=== PATIENT | female | born 1965 | race Caucasian/White ===

== ENCOUNTER 2020-05-12 10:24 | Outpatient (CLI) | payer OTHER ==
--- NOTE | 2020-05-12 12:57 | RAD ---
Exam: Barium swallow esophagram Exposure: 3.6 minutes, 4.56 mg/sq cm HISTORY: Difficulty swallowing. Dysphagia. FINDINGS: Chest one view: Cycle Counter chest radiograph demonstrates a normal cardiac silhouette. Pulmonary vessels and hilum are normal. Costophrenic angles are clear. Lungs are hyperinflated, without consolidation or mass. No pneumothorax or acute osseous abnormalities There is a short segment narrowing involving the proximal thoracic esophagus at the T2 and T3 level. On the AP projection, there is a left-sided filling defect. On the lateral projection, there is circumferential narrowing, similar to an apple core type lesion. The remainder the thoracic esophagus has a overall normal course and caliber. No evidence of penetration or aspiration. There is residue in the piriform sinuses and vallecula. Patient was administered a 13 mm barium tablet which did not initially pass beyond the level of stric ture. Tablet did evaluation making to the mid thoracic esophagus. Patient began coughing and spit up the tablet. IMPRESSION: High-grade stricture involving the proximal thoracic esophagus. Endoscopy is recommended Results of study discussed with Dr. Headley 05/12/2020 at 1:00 PM Code CR Transcribed Date/Time: 05/12/2020 1:33 PM
== END 2020-05-12 10:25 | disposition home or self-care (01) ==
LOC: RAD 10:24
PROVIDERS: ATTEND Student in an Organized Health Care Education/Training Program
DX: R13.10 Dysphagia, unspecified (principal); K22.2 Esophageal obstruction
CPT/HCPCS: 74220

== ENCOUNTER 2020-05-23 09:52 | Outpatient (CLI) | payer OTHER ==
[2020-05-23] MEDS ORDERED: Iopamidol 370 76% 100 ML VIAL ONE (11:00)
--- NOTE | 2020-05-23 11:25 | CT ---
CT neck soft tissues with contrast: 05/23/2020 HISTORY: 55-year-old female with dysphagia and esophageal mass K22.9 COMPARISON: None FINDINGS: Centrilobular emphysematous changes throughout the visualized portions of the upper lung palafox. Rim-enhancing, irregularly-shaped mass with necrotic central components, centered in the upper esopha kathy, measuring approximately 1.5 x 3.5 x 5.5 cm. The superior component apparently involves the post cricoid region and posterior pharyngeal wall. Its inferior extent reaches approximately the T2-3 level. The left side of the tumor mass occupies the posterior half of the left lobe of the thyroid gland. No involvement of the larynx. There may or may not be involvement of local small lymph nodes around t he main tumor, but there is no significant cervical lymphadenopathy by size criteria at the various levels of cervical lymph nodes. The parapharyngeal, retropharyngeal, perivertebral, submandibular, parotid, metal bending machine operator, and posterior cervical, spaces, are unremarkable. No destructive osseous lesion. IMPRESSION: 1.) Malignant neoplastic tumor of upper esophagus, involving the hypopharynx, and apparently invading the left lobe of thyroid gland.. 2) centrilobular emphysema.
== END 2020-05-23 09:53 | disposition home or self-care (01) ==
LOC: BICCT 09:52
PROVIDERS: ATTEND Student in an Organized Health Care Education/Training Program
DX: K22.8 Other specified diseases of esophagus (principal); J43.2 Centrilobular emphysema
CPT/HCPCS: 70491; Q9967

== ENCOUNTER 2020-05-25 15:44 | Outpatient (CLI) | payer OTHER ==
[2020-05-26 14:28] LABS: SARS-CoV-2 MS2 Positive; SARS-CoV-2 N Gene Negative; SARS-CoV-2 S Gene Negative; SARS-CoV-2 by NAA Not Detected (NotDetected); SARS-CoV-2 orf1ab Negative
== END 2020-05-25 15:45 | disposition home or self-care (01) ==
LOC: LABBT 15:44
PROVIDERS: ATTEND Internal Medicine Gastroenterology
DX: Z01.812 Encounter for preprocedural laboratory examination (principal); Z11.59 Encounter for screening for other viral diseases; R13.10 Dysphagia, unspecified
CPT/HCPCS: 87635; U0003

== ENCOUNTER 2020-06-09 07:54 | Outpatient (CLI) | payer OTHER ==
--- NOTE | 2020-06-09 11:17 | PET ---
PET W CT Skull to Mid Thigh History: Malignant neoplasm of esophagus. Comparison: Neck CT May 23, 2020 Findings: PET CT from skull-mid thigh was performed after the intravenous administration of 11 mCi F- 18 FDG. Markedly FDG avid mass extending from the hypopharynx and upper thoracic esophagus has SUV max 11.8. No adjacent FDG avid adenopathy. Single subtle focal area of increased FDG avidity within the anterior left fifth rib with SUV max 2.7 . On the noncontrast attenuation corrected images there is associated mild anterior and posterior cortical sclerosis suggesting healing fracture. No other focal area of abnormal FDG avidity from the skull-mid thigh. Noncontrast CT for attenuation correction infiltrates high-grade centrilobular emphysema in the lung apices. Mild atherosclerotic plaque of the aorta. No dilated loops of large or small bowel. No hydronephrosis. Impression: 1. Markedly FDG avid mass of the hypopharynx extending to the upper thoracic esophagus with SUV max 1 1.8. No adjacent FDG avid adenopathy. 2. Subtle focus of increased FDG avidity within the anterior left fifth rib felt to reflect a healing rib fracture as there is anterior and posterior cortical sclerosis without erosion. Close attention on follow-up imaging recommended 3. No distant solid organ metastatic disease. 4. High-grade centrilobular emphysema in the lung apices.
== END 2020-06-09 07:55 | disposition home or self-care (01) ==
LOC: PET 07:54
PROVIDERS: ATTEND Internal Medicine Hematology & Oncology
DX: C15.8 Malignant neoplasm of overlapping sites of esophagus (principal); J43.2 Centrilobular emphysema; J39.2 Other diseases of pharynx; S22.32XD Fracture of one rib, left side, subsequent encounter for fracture with routine healing; G37.9 Demyelinating disease of central nervous system, unspecified
CPT/HCPCS: 78815; A9552

== ENCOUNTER 2020-07-11 14:16 | Outpatient (CLI) | payer OTHER ==
--- NOTE | 2020-07-11 15:54 | RAD ---
LEFT SHOULDER 3 VIEWS: Date: 07/11/2020 HISTORY: Left shoulder pain. FINDINGS/IMPRESSION: No fracture, dislocation, or bony destruction is seen. POS: AH
== END 2020-07-11 14:17 | disposition home or self-care (01) ==
LOC: BICRAD 14:16
PROVIDERS: ATTEND Radiology Radiation Oncology
DX: M25.512 Pain in left shoulder (principal); C80.1 Malignant (primary) neoplasm, unspecified

== ENCOUNTER 2020-07-24 16:08 | Inpatient (IN) | payer OTHER ==
[~2020-07-24 16:08] MED LIST: Iopamidol 370 76% 100 ML VIAL ONE
[2020-07-24 16:41] LABS: Hemoglobin 10.3 g/dL (12.0-16.0); Mean Corpuscular HGB CONC 34.2 g/dL (32.0-36.0); Mean Corpuscular Volume 99.5 fL (78.0-98.0); Mean Platelet Volume 8.4 fL (7.4-10.4); Platelet Count 396 thou/uL (130-400); RBC Distribution Width 13.3 % (11.5-14.5); Red Blood Cell (RBC) Count 3.04 mill/uL (4.20-5.40); White Blood Cell (WBC) Count 4.3 thou/uL (4.8-10.8)
[2020-07-24 16:58] LABS: Band 39 % (5-11); MDiff Complete? YES; Macrocytosis SLIGHT = 6-15 cells (100X) (0-5/hpf); Metamyelocyte 4 % (0-0); Monocytes 11 % (0-10); Neutrophil 46 % (42-75); Platelet Morphology Comment Appears Adequate; Polychromasia SLIGHT = 2-3 cells (100X) (0-2/hpf)
[2020-07-24 17:01] LABS: ALT (SGPT) 14 U/L (8-55); AST (SGOT) 13 U/L (5-34); Albumin 3.1 g/dL (3.5-5.0); Alkaline Phosphatase 85 U/L (40-110); Anion Gap 15 mmol/L (10-20); BUN (Urea Nitrogen) 14 mg/dL (9.8-20.1); Bilirubin, Total 0.4 mg/dL (0.2-1.2); Calc. Creatinine Clearance 0 mL/min (70-130); Calcium 8.5 mg/dL (7.8-10.44); Carbon Dioxide 22 mmol/L (22-29); Chloride 101 mmol/L (98-107); Estimated GFR-MDRD Greater than 90; Globulin 2.3 g/dL (2.4-3.5); Glucose 112 mg/dL (70-105); Potassium 3.4 mmol/L (3.5-5.1); Protein, Total 5.4 g/dL (6.0-8.3); Sodium 135 mmol/L (136-145)
--- NOTE | 2020-07-24 17:01 | RAD ---
Chest one view HISTORY: Cough. Evaluate for aspiration pneumonia. COMPARISON: 06/16/2020. FINDINGS: Cardiac silhouette and pulmonary vasculature are unremarkable. Mediastinum is midline with right subclavian Mediport unchanged in position. Ill-defined parenchymal opacity projects over the right lower lobe. Predominantly superior segment. Left lung well-inflated. No evidence of pneumothorax. IMPRESSION : Right lower lobe infiltrate, consistent with aspiration pneumonia.
[2020-07-24] MEDS ORDERED: Vancomycin 1 GM/200 ML BAG ONE ×2 (17:09→18:13)
[2020-07-24] MEDS ORDERED: Cefepime 1 GM VIAL ONE (17:09)
--- NOTE | 2020-07-24 17:39 | CT ---
CT ANGIOGRAM OF THE CHEST: HISTORY: Cough. Dyspnea. History of esophageal cancer. Patient is undergoing radiation therapy and ch emotherapy. Possible aspiration pneumonia secondary to fistula between esophagus and her trachea. Progressive cough with brown-green sputum. COMPARISON: None Correlation: CT neck soft tissue 05/23/2020 TECHNIQUE: CT angiogram of the chest is performed in the axial plane. Three-dimensional reformatted i mages are submitted for interpretation FINDINGS: Mediastinum: No mass, lymphadenopathy or hematoma. HEART: Normal size. No significant pericardial fluid. Aorta: No aneurysm or dissection Upper solid abdominal viscera: No abnormality enhancement. Trachea and central bronchi: Patent Pleural spaces: No effusion Lung parenchyma: There is extensive consolidation involving the right upper lobe. There is a cavitary lesion in the right upper lobe with adjacent lung parenchymal opacification. Cavitary portion measures 2.5 x 10 m. Additional smaller cavitations in the right upper lobe are identified. Small cav itary focus with increased soft tissue in the periphery, measuring 1.4 x 1.2 cm is located in the middle lobe. Solid nodule in the middle lobe, measuring 0.5 cm. Irregular marginated solid nodule in the right lower lobe measures 0.8 x 0.6 cm. Emphysematous change in the left and right upper lobe. Pneumothorax: None Osseous structures: No lytic or blastic lesions Pulmonary arteries: Adequate contrast opacification pulmonary arterial system to the level of segment al arteries. No filling defect to suggest pulmonary embolism Lines and tubes: Right-sided PICC line, terminates in the caval atrial junction. There is a percutane ous gastric feeding tube. Additional findings: Ventral abdominal wall hernia containing mesenteric fat. There does appear to be a fistulous connecti on between the trachea and esophagus, just inferior to the level of the thyroid cartilage. The fistulous connection appears on the posterior left aspect of the trachea. The associated esophagus do es demonstrate some mild esophageal wall thickening. No significant debris in the thoracic trachea are central bronchi. IMPRESSION: 1. No evidence of pulmonary arterial embolism to the level segmental arteries. 2. Fistulous connection between the distal cervical trachea and the cervical esophagus. 3. Findings compatible with aspiration pneumonia involving the right upper lobe. 4. Multiple lung parenchymal nodules in the right lung, worrisome for metastases. Transcribed Date/Time: 07/24/2020 6:09 PM
[2020-07-24] MEDS ORDERED: Clindamycin/D5W 900 MG in Premix Bag 1 BAG IVPB SCH (18:00)
[2020-07-24] MEDS ORDERED: HYDROcodone/Acetaminophen 10/325 mg Tablet ONE (18:08)
[2020-07-24] MEDS ORDERED: Morphine 4 MG/ML VIAL ONE (18:14)
[2020-07-24] MEDS ORDERED: Ondansetron PF 4 MG/2 ML Vial ONE (18:14)
[2020-07-24] MEDS ORDERED: Clindamycin/D5W 900 mg/50 ml Premix Bag ONE (19:53)
[2020-07-24 20:26] LABS: Bacteria/HPF None Seen HPF (None Seen); Bilirubin Negative (Negative); Blood, Urine Negative (Negative); Clarity Clear (Clear); Glucose, Urine (Dipstick) Normal (Negative); Ketone, Urine Negative (Negative); Leukocyte Negative Leu/uL (Negative); Nitrite Negative (Negative); Protein, Urine (Dipstick) 30 mg/dL (Neg-Trace); RBC/HPF 0-3 HPF (0-3); Squamous Epithelial 0-3 HPF (0-3); Urobilinogen Normal mg/dL (Less than 2); WBC/HPF 0-3 HPF (0-3); pH, Urine 6.5 (5.0-9.0)
[2020-07-24 20:27] LABS: Specific Gravity, Urine 1.053 (1.002-1.036)
[2020-07-24] MEDS ORDERED: Lactated Ringer's 1,000 ML IV SCH (22:00)
[2020-07-24] MEDS ORDERED: HYDROcodone/Acetaminophen 5/325 mg Tablet PO PRN ×2 (22:00)
[2020-07-24 22:52] VITALS: BMI 15.0
[2020-07-24] MEDS ORDERED: Acetaminophen 650 MG Suppository PR PRN (23:18)
[2020-07-25] MEDS ORDERED: Clindamycin/D5W 900 MG in Premix Bag 1 BAG IVPB SCH (04:00)
[2020-07-25] MEDS ORDERED: hydrALAZINE 20 MG/ML VIAL SLOW IVP PRN (04:18)
[2020-07-25] MEDS ORDERED: Labetalol HCl 100 MG/20 ML VIAL SLOW IVP PRN (04:18)
[2020-07-25] MEDS ORDERED: Acetaminophen 325 MG TAB PER TUBE PRN (04:18)
[2020-07-25] MEDS ORDERED: Promethazine HCl 12.5 MG in Sodium Chloride 0.9% 50 ML IVPB PRN (04:18)
[2020-07-25] MEDS ORDERED: Ondansetron PF 4 MG/2 ML Vial IVP PRN (04:18)
--- NOTE | 2020-07-25 04:22 | PDOC.HHP ---
Hospitalist HPI - History of Present Illness Shortness of breath, weakness, cough History of Present Illness: Patient is a 55 year old female with PMH esophageal cancer who was sent to ED from radiation oncology for generalized weakness, cough, shortness of breath. Patient has esophageal cancer managed by med onc Dr Bello and rad onc Dr Morel. Patient is undergoing chemotherapy and radiation currently. She sent her here as she is concerned she might have a aspiration pneumonia secondary to a known fistula that has recently developed between her esophagus and her trachea. Patient reports 2 weeks of progressive cough w/ brown sputum. Patient denies any fevers, she reports she has been taking Motrin and Tylenol regularly related to pain in neck and back/shoulders. She also reports generalized w eakness and some shortness of breath. No reported vomiting, no reported abdominal pain. She has a PEG tube and takes all food through PEG, has been told to eat nothing by mouth and she follows this strictly. Patient reports she is also scheduled for a planned tracheostomy this . She did not undergo her chemotherapy today but did get radiation this morning and reports her oncologist wants to continue radiation today 07/24 as inpatient. Her last chemotherapy was last Friday. reports 3 weeks total chemo this cycle. In ED, imaging concerning for large right middle lobe pulmonary abscess. CT scan with no evidence of pulmonary embolus. ED physician discussed with pulmonology who recommended clindamycin, vancomycin and cefepime and will consult in AM, they suspect patient may need a bronchoscopy. Otherwise patient remained stable in the ER and admitted for further care for sepsis and pneumonia. Hospitalist ROS - Review of Systems Constitutional: reports: weakness. denies: fever, chills Eyes: denies: pain, vision change, conjunctivae inflammation, eyelid inflammation, redness, other ENT: reports: throat pain (cancer). denies: ear pain, ear discharge, nose pain, nose discharge, nose congestion, mouth pain, mouth swelling, throat swelling, other Respiratory: reports: cough, shortness of breath. denies: dry, hemoptysis, SOB with excertion, pleuritic pain, sputum, wheezing, other Cardiovascular: denies: chest pain, palpitations, orthopnea, paroxysmal noc. dyspnea, edema, light headedness, other Gastrointestinal: denies: nausea, vomiting, abdominal pain, diarrhea, constipation, melena, hematochezia, other Genitourinary: denies: dysuria, frequency, incontinence, hematuria, retention, other Musculoskeletal: reports: neck pain, shoulder pain, back pain Skin: denies: rash, lesions Neurological: denies: weakness, numbness, incoordination, change in speech, confusion, seizures, other All other systems reviewed; all pertinent +/- noted in HPI/Subj - Medication Medications: Active Medications Generic Name Dose Route Start Last Admin Trade Name Freq PRN Reason Stop Dose Admin Hydrocodone Bitart/Acetaminophen 1 tab 07/24/20 22:00 07/24/20 23:45 Hydrocodone/Acetaminophen 5/325 Mg Tablet PO 07/25/20 06:47 1 tab Q6H PRN Administration Mild-Moderate Pain (1-5) Hospitalist History - Past Medical History Other Medical History: esophageal cancer - Past Surgical History Other Surgical History: port, peg tube placement - Family History Family History: reports: no pertinent history - Social History Other Social History: Social History includes former alcoholic - sober for 9 years;, Patient denies drug use, Patient currently uses tobacco, smokes cigarettes, daily, Patient smokes 2 CIGS per day. - Exam General Appearance: NAD, awake alert Eye: PERRL, anicteric sclera ENT: normocephalic atraumatic, no oropharyngeal lesions, moist mucosa Neck: supple, symmetric, no JVD, no thyromegaly, no lymphadenopathy, no carotid bruit Heart: RRR Respiratory: CTAB, no wheezes, no rales, no ronchi, normal chest expansion, no tachypnea, normal percussion Gastrointestinal: soft, non-tender, non-distended, normal bowel sounds, no palpable masses, no hepatomegaly, no splenomegaly, no bruit Gastrointestinal - other findings: peg, site normal in appearance no erythema/edema/pus Extremities: no cyanosis, no clubbing, 1+ LE edema Skin: no lesions, no rashes Neurological: cranial nerve grossly intact, normal sensation to touch, no weakness, no focal deficits, no new deficit Musculoskeletal: normal tone, normal strength, no muscle wasting Psychiatric: normal affect, normal behavior, A&O x 3 Hospitalist Results - Labs Result Diagrams: 07/24/20 16:16 07/24/20 16:19 Lab results: WBC 4.3 thou/uL (4.8-10.8) L 07/24/20 16:16 Hgb 10.3 g/dL (12.0-16.0) L 07/24/20 16:16 Hct 30.2 % (36.0-47.0) L 07/24/20 16:16 MCV 99.5 fL (78.0-98.0) H 07/24/20 16:16 Plt Count 396 thou/uL (130-400) 07/24/20 16:16 Band Neuts % (Manual) 39 % (5-11) H 07/24/20 16:16 Sodium 135 mmol/L (136-145) L 07/24/20 16:19 Potassium 3.4 mmol/L (3.5-5.1) L 07/24/20 16:19 Chloride 101 mmol/L (98-107) 07/24/20 16:19 Carbon Dioxide 22 mmol/L (22-29) 07/24/20 16:19 BUN 14 mg/dL (9.8-20.1) 07/24/20 16:19 Creatinine 0.54 mg/dL (0.6-1.1) L 07/24/20 16:19 Glucose 112 mg/dL (70-105) H 07/24/20 16:19 Lactic Acid 1.6 mmol/L (0.5-2.2) 07/24/20 16:19 Calcium 8.5 mg/dL (7.8-10.44) 07/24/20 16:19 Total Bilirubin 0.4 mg/dL (0.2-1.2) 07/24/20 16:19 AST 13 U/L (5-34) 07/24/20 16:19 ALT 14 U/L (8-55) 07/24/20 16:19 Alkaline Phosphatase 85 U/L (40-110) 07/24/20 16:19 Troponin I Less than 0.010 ng/mL (< 0.028) 07/24/20 16:44 Serum Total Protein 5.4 g/dL (6.0-8.3) L 07/24/20 16:19 Albumin 3.1 g/dL (3.5-5.0) L 07/24/20 16:19 Urine Ketones Negative mg/dL (Negative) 07/24/20 20:05 Urine Blood Negative (Negative) 07/24/20 20:05 Urine Nitrite Negative (Negative) 07/24/20 20:05 Ur Leukocyte Esterase Negative Stephen/uL (Negative) 07/24/20 20:05 Urine RBC 0-3 HPF (0-3) 07/24/20 20:05 Urine WBC 0-3 HPF (0-3) 07/24/20 20:05 Ur Squamous Epith Cells 0-3 HPF (0-3) 07/24/20 20:05 Urine Bacteria None Seen HPF (None Seen) 07/24/20 20:05 Additional comment: VITAL SIGNS FriJul 24, 2020 19:58 JOANNE Alaniz, Javi BP: 101/57 Pulse: 88 Resp: 16 Pain: 0 O2 sat: 99 on (Room Air) Time: 07/24/2020 19:58. XR Chest 1 View Portable Observe DT: FriJul 24, 2020 16:23 CXRP Chest one view HISTORY: Cough. Evaluate for aspiration pneumonia. COMPARISON: 06/16/2020. FINDINGS: Cardiac silhouette and pulmonary vasculature are unremarkable. Mediastinum is midline with right subclavian Mediport unchanged in position. Ill-defined parenchymal opacity projects over the right lower lobe. Predominantly superior segment. Left lung well-inflated. No evidence of pneumothorax. IMPRESSION : Right lower lobe infiltrate, consistent with aspiration pneumonia. imaging reports, microbiology, labs, ED documents reviewed CT chest report reviewed, reveals no PE, fistulous connection between trachea and esophagus, findings consistent with aspiration pneumonia in RUL, multiple R lung nodules concerning for metastases Hospitalist H&P A/P - Plan Plan: Patient is a 55 year old female with PMH esophageal cancer who was sent to ED from radiation oncology for generalized weakness, cough, shortness of breath. # aspiration pneumonia RUL, abscess/cavitary pneumonia suspected # esphageal cancer with possible lung metastases Patient w/ 2 weeks weakness, cough, SOB. she has esophageal cancer managed by med onc Dr Bello and rad onc Dr Morel. Patient is undergoing chemotherapy and radiation currently. Sent here from radiation oncology office on concern for aspiration pneumonia secondary to known TE fistula. CT chest report reviewed, reveals no PE, fistulous connection between trachea and esophagus, findings consistent with aspiration pneumonia in RUL, multiple R lung nodules concerning for metastases. patient reports she is scheduled for a planned tracheostomy this Thursday - respiratory culture reviewed, organisms observed include gram negative rods, gram positive rods, gram positive cocci, continue v ancomycin/clindamycin/cefepime - follow final respiratory and other culture results as well as covid swab results - consult pulmonary medicine, patient may qualify for bronchoscopy - unsure if lung mets are known before now, consult medical oncology for assistance # current radiation therapy - She did not undergo her chemotherapy today but did get radiation this morning and reports her oncologist wants to continue radiation today 07/24 as inpatient. Her last chemotherapy was last Friday. report s 3 weeks total chemo this cycle. - consult radiation oncology - consult case management to help arrange transportation # PEG tube dependance secondary to esophageal cancer and TE fistula She has a PEG tube and takes all food through PEG, has been told to eat nothing by mouth and she follows this strictly. - continue bolus tube feeds, uses 4 cans isosource and 1 can ensure through PEG w/ about 320ml free water daily, will start QID jevity and consult dietary team for fine tuning, will continue free water in addition to IVF - speech consult placed as well - patient could benefit from being taught how to vent through peg, unsure which specialty can teach her this, appreciate assistance and knowledge # generalized weakness, debility - PT/OT/case management consults DVT/GI ppx
[2020-07-25] MEDS ORDERED: Electrolyte Replacement Protoc 1 EACH EACH FS SCH (04:30)
[2020-07-25] MEDS: Sodium Chloride 0.9% 1,000 ML IV SCH ×2 (04:51→16:35)
[2020-07-25] MEDS ORDERED: Vancomycin 1 GM in Premix Bag 1 BAG IVPB SCH (05:00)
[2020-07-25] MEDS ORDERED: Vancomycin HCl 500 MG in Sodium Chloride 0.9% 100 ML IVPB SCH (05:00)
[2020-07-25] MEDS ORDERED: Ampicillin/Sulbactam 3 GM in Sodium Chloride 0.9% 100 ML IVPB SCH (05:00)
[2020-07-25] MEDS: Famotidine 20 MG TAB PER TUBE SCH ×2 (09:54→20:55)
[2020-07-25] MEDS: Cefepime 2 GM in Sodium Chloride 0.9% 100 ML IVPB SCH ×2 (09:55→22:11)
--- NOTE | 2020-07-25 10:07 | PDOC.CONS ---
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 HISTORY OF PRESENT ILLNESS: Rekha Novak initially developed progressive dysphagia and pharyngitis in early 2019 and altered her diet to soft food/liquids with associated 16 lb weight loss in 3 months. After referral to ENT and imaging including barium swallow and CT neck, she was diagnosed with upper esophageal tumor involving the posterior pharyngeal wall, postcricoid area, and invading the left lobe of the thyroid gland. She then was referred to GI and underwent EGD on 05/30/2020 that showed a circumferential esophageal mass at the upper esophageal sphincter extending about 5 cm distally. Biopsy from this confirmed poorly differentiated squamous cell carcinoma. She was therefore referred to medical oncology and has seen Dr. Bello. Her PET/CT from 06/09/2020 showed no evidence of distant metastatic or julian disease. She was staged as T4 N0 M0. On 06/16, she underwent Mediport and PEG tube placement. She started combined chemoradiation on 07/03/2020 with weekly Carbo/Taxol and radiation dose planned to 70 Gy given daily over 7 weeks. After only ~20 Gy, I noticed a concerning finding on our daily imaging with cone beam CT (a non- diagnostic quality scan performed daily in order to align patient correctly for each treatment) suspicious for connection between trachea and esophagus. This fistula is in area of prior bulky tumor in cervical esophagus, which has significantly regressed with chemoradiation. After confirmation of this fistulous connection on subsequent cone beam CT, I referred pt to Dr. Montesinos in ENT for evaluation. She was planned for tracheostomy on 07/27/2020. I discussed with pt that TEF will continue to enlarge if we continue chemoradiation, placing her at very high risk of aspiration, and we made mutual decision to continue treatment as this is the only definitive means of treating her malignancy. During this timeframe, Ms. Novak had persistent cough (similar to pre- treatment) and pain to left ear/neck (similar to pre-treatment). She was under strict NPO precautions due to aspiration concern and was pushing fluid/nutrition through PEG. Yesterday in clinic after radiation, she appeared acutely ill with foul smell on her breath and physical exam changes on lung exam, so I encouraged her to seek emergency evaluation due to concern for aspiration. She had CTA yesterday that confirmed fistulous connection in cervical esophagus and extensive consolidation of RUL with cavitary 2.5 cm lesion and was started on antibiotics. PAST MEDICAL HISTORY: Esophageal cancer; Malignant tracheoesophageal fistula PAST SURGICAL HISTORY: Feeding tube and Mediport placed 06/16/2020 MEDICATIONS: Tylenol, ibuprofen, [place] as needed ALLERGIES: NKDA FAMILY HISTORY: Maternal grandmother with HN cancer SOCIAL HISTORY: [id number] smoking history, previously 1.5 PPD x40 years. Denies alcohol. Denies drug use. Currently working for [employer]. Lives by herself and drives herself. Her mother lives in [place] to provide pt support. PREVIOUS RADIATION: None prior REVIEW OF SYSTEMS: 10-point ROS negative except as per HPI and nursing notes. PHYSICAL EXAM: VITALS: T 99.3; P 85; R 16; Sat 95% RA. GENERAL: KPS 60. Thin frail female lying in hospital bed. HEENT: Normocephalic, atraumatic. No evidence of lymphadenopathy or palpable disease. Mild skin erythema in anterior and posterior neck within palafox of irradiation. No oropharyngeal mucositis or erythema. No crepitus. LYMPHATICS: No cervical or supraclavicular adenopathy palpable bilaterally. CARDIOVASCULAR: Regular rate and rhythm. No murmurs, rubs, or gallops. Mediport in place in right upper chest. PULMONARY: Crackles and wheezes in RUL. Left lung clear with good air movement. BACK: No tenderness to percussion. ABDOMEN: Soft, nontender. PEG in place without bilious drainage. MUSCULOSKELETAL: No gross joint deformities. NEUROLOGIC: Cranial nerves II-XII intact. Strength 5/5 in upper and lower extremities bilaterally. Sensation to soft touch intact and symmetric in upper and lower extremities. Gait normal without assistive devices. LABS: Reviewed BMP and CBC. WBC 4.3. Hgb 10.3. IMAGING: Reviewed CTA 07/24/2020. Fistula in cervical esophagus at prior site of bulky tumor. RUL aspiration pneumonia. Right lung nodules. PATHOLOGY: No new path. Previous biopsy reviewed from 05/30/2020. 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 She is admitted with aspiration pneumonia from malignant tracheoesophageal fistula. Pending pulm eval. Plan to continue with daily radiation as inpatient as long as pt is stable for transport and would like to be aggressive with definitive treatment. Her long-term prognosis is poor from the locally advanced hypopharynx/esophageal cancer, especially when compounded by malignant TEF and aspiration pneumonia.
--- NOTE | 2020-07-25 10:54 | CON ---
DATE OF CONSULTATION: HISTORY OF PRESENT ILLNESS: Rekha Novak is a 55-year-old cachectic female, who was admitted to the hospital with foul-smelling discharge, cough, low-grade fever, and weakness. She was recently diagnosed to have a fistula of the esophagus between the esophagus and the trach. She has been coughing up progressively foul smelling brown-green sputum. She has a PEG recently placed in and apparently also has a MediPort placed in, seeing local oncologist for chemoradiation. She has longstanding history of tobacco abuse, currently smoking. PAST MEDICAL HISTORY: Otherwise, unremarkable surprisingly for no major medical problems. Recent diagnosis of carcinoma of the esophagus. PAST SURGICAL HISTORY: Recent surgeries; PEG and MediPort. HOME MEDICINE: Ibuprofen. ALLERGIES: NONE. REVIEW OF SYSTEMS: Unremarkable. PHYSICAL EXAMINATION: VITAL SIGNS: Temperature 99, pulse 85, respirations 16, saturations 95% on room air, blood pressure 104/57. CHEST: Rhonchi and crackles bilaterally. CARDIAC: Normal S1, S2. No gallops. ABDOMEN: Soft. There is gross foul-smelling pus coming out of the oral cavity. LABORATORY DATA: White count 4000, no left shift. Sodium 135. ASSESSMENT: 1. Lung abscess probably from aspiration versus tracheoesophageal fistula recently diagnosed. 2. Obstructive carcinoma of the esophagus. PLAN: At this stage, we will continue antibiotics as prescribed; clindamycin, [place]. She is scheduled for a trach presumably this after discussed with her oncologist. Continue nutrition support. She may require a minimum of 3 weeks of antibiotics for lung abscess. This is a consultation note, 70 minutes, of which 50% direct patient care. Job ID: [id number]
[2020-07-25] MEDS ORDERED: HYDROcodone/Acetaminophen 5/325 mg Tablet PO PRN (11:40)
--- NOTE | 2020-07-25 12:33 | PDOC.HOSPP ---
- Subjective Encounter Date: 07/25/20 Encounter Time: 08:00 Subjective: c/o generalized pain, no sob has cough with foul smelling brown sputum ambulating in room - Objective Vital Signs & Weight: Vital Signs (12 hours) Temp Pulse Resp BP Pulse Ox 07/25/20 10:30 99.3 F 92 18 104/61 94 L 07/25/20 07:52 99.3 F 85 16 104/57 L 95 07/25/20 03:29 98.6 F 77 16 119/64 98 Weight Admit Weight 90 lb Weight 90 lb I&O: 07/24/20 07/25/20 07/26/20 06:59 06:59 06:59 Intake Total 900 Balance 900 Result Diagrams: 07/24/20 16:16 07/24/20 16:19 Hospitalist ROS - Medication Medications: Active Medications Generic Name Dose Route Start Last Admin Trade Name Freq PRN Reason Stop Dose Admin Hydrocodone Bitart/Acetaminophen 2 tab 07/25/20 11:40 07/25/20 11:44 Hydrocodone/Acetaminophen 5/325 Mg Tablet PO 2 tab Q6H PRN Administration Pain (4-6) Famotidine 20 mg 07/25/20 09:00 07/25/20 09:54 Famotidine 20 Mg Tab PER TUBE 20 mg BID DAVE Administration Sodium Chloride 1,000 mls @ 75 mls/hr 07/25/20 04:15 07/25/20 04:51 Normal Saline 0.9% IV 1,000 mls .[id number] DAVE Administration Cefepime HCl 2 gm/ Sodium 100 mls @ 200 mls/hr 07/25/20 08:00 07/25/20 09:55 Chloride IVPB 100 mls 08,1999 DAVE Administration Sodium Chloride 10 ml 07/25/20 09:00 07/25/20 09:56 Flush - Normal Saline 10 Ml Syringe IVF Not Given Q12HR DAVE - Exam General Appearance: awake alert, ill appearing Eye: PERRL, anicteric sclera ENT: no oropharyngeal lesions, dry oral mucosa Neck: no JVD Heart: RRR, no murmur Respiratory: no wheezes, no rales, rhonchi Gastrointestinal: soft, non-tender, non-distended, normal bowel sounds Extremities: no cyanosis, no edema Neurological: cranial nerve grossly intact, no focal deficits Psychiatric: normal affect, A&O x 3 Hosp A/P (1) Lung abscess Code(s): J85.2 - ABSCESS OF LUNG WITHOUT PNEUMONIA Status: Acute Qualifiers: Pulmonary abscess pneumonia presence: with pneumonia Laterality: right (2) Squamous cell carcinoma of esophagus Code(s): C15.9 - MALIGNANT NEOPLASM OF ESOPHAGUS, UNSPECIFIED Status: Chronic (3) Tracheo-esophageal fistula Code(s): J86.0 - PYOTHORAX WITH FISTULA Status: Chronic (4) Chronic anemia Code(s): D64.9 - ANEMIA, UNSPECIFIED Status: Chronic (5) FTT (failure to thrive) in adult Status: Chronic (6) Moderate protein-calorie malnutrition Code(s): E44.0 - MODERATE PROTEIN-CALORIE MALNUTRITION Status: Chronic - Plan sputum culture pending, is on clindamycin, vanc and cefepime, nebs is going for radiation therapy plan is for trach on by , her ent specialist as planned before is on carboplatin and taxol weekly from 07/03 and daily radiation therapy tracheo-esophageal fistula is the site of prior bulky cancer per rad onc likely will have recurrent pna and may need closure of fistula if feasible at some point when she is cancer free? continue peg feeding with free water, pain control with norco hemostable, prognosis guarded
[2020-07-25] MEDS: Clindamycin/D5W 600 MG in Premix Bag 1 BAG IVPB SCH ×2 (12:40→22:12)
[2020-07-25] MEDS ORDERED: Albuterol 200 PUFF (6.7GM INHALER) INH PRN (15:24)
--- NOTE | 2020-07-25 16:22 | PDOC.FMACP ---
Advance Care Planning - Problem (1) Palliative care encounter Status: Acute Code(s): Z51.5 - ENCOUNTER FOR PALLIATIVE CARE (2) Lung abscess Status: Acute Code(s): J85.2 - ABSCESS OF LUNG WITHOUT PNEUMONIA Qualifiers: Pulmonary abscess pneumonia presence: with pneumonia Laterality: right (3) FTT (failure to thrive) in adult Status: Chronic (4) Moderate protein-calorie malnutrition Status: Chronic Code(s): E44.0 - MODERATE PROTEIN-CALORIE MALNUTRITION (5) Squamous cell carcinoma of esophagus Status: Chronic Code(s): C15.9 - MALIGNANT NEOPLASM OF ESOPHAGUS, UNSPECIFIED - Note Participants: patient, palliative care Summary: Palliative Care introduced Advanced Care Planning. The diagnosis, prognosis and goals of care were discussed. Appropriate forms and documentation to accomplish the goals of care were discussed. All questions were answered. Ms Novak elected to complete a MPOA as well as directive to physicians. Original and copies given to the patient as well as copy placed on the chart for medical records. Will revisit resuscitation status, and complete documents as appropriate. Time Spent (mins): 20
[2020-07-25] MEDS: Vancomycin HCl 500 MG in Sodium Chloride 0.9% 100 ML IVPB SCH (16:26)
[2020-07-25] MEDS: HYDROcodone/Acetaminophen 5/325 mg Tablet PO PRN ×2 (17:41→23:58)
[2020-07-25] MEDS: Albuterol 200 PUFF (6.7GM INHALER) INH SCH (19:58)
--- NOTE | 2020-07-25 20:43 | CON ---
DATE OF CONSULTATION: REASON FOR CONSULT: Squamous cell carcinoma. HISTORY OF PRESENT ILLNESS: Ms. 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 Before diagnosis, she had trouble swallowing and a sore throat. She was eventually referred to ENT and had a CT scan which revealed a tumor in the upper esophagus involving the hypopharynx and the thyroid gland. 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 She was started on carboplatin and Taxol with radiation. After one dose of radiation, she developed a transesophageal fistula. This is in the area of the prior bulky tumor in the esophagus. She has seen Dr. Montesinos and the plan was for tracheostomy on July 27. She has been getting IV hydration in our clinic 2 to 3 times weekly. She does have a feeding tube, but has been unable to use it secondary to nausea and gas. Yesterday when she presented to our clinic for treatment, she was hypotensive. She had foul smelling breath and was nauseated. She did receive IV fluids, Zofran, and dexamethasone in our clinic. She then went to radiation and decision was made to send her to the ER for further evaluation. She underwent a CT angio of the chest, which was negative for pulmonary emboli, but did confirm the fistula between the distal cervical trachea and the esophagus. She also had findings compatible with aspiration pneumonia. She was admitted and started on antibiotics. She has been cultured. The sputum contains possible E coli. She is resting comfortably at the bedside. She attempted to have to feed herself, have a can of tube feeds. Feels better and denies any complaints at this time. PAST MEDICAL HISTORY: 1. 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 2. COPD. 3. Long-time tobacco use. 4. Tracheoesophageal fistula. PAST SURGICAL HISTORY: 1. MediPort placement. 2. Feeding tube. 3. Esophageal biopsy. ALLERGIES: NO KNOWN DRUG ALLERGIES. HOME MEDICATIONS: Tylenol, Motrin, and [place] p.r.n. FAMILY HISTORY: Noncontributory. SOCIAL HISTORY: Sixty plus pack-year history of smoking. No alcohol or illicit drug use. REVIEW OF SYSTEMS: A 10-point review of systems is negative, except for noted in HPI. PHYSICAL EXAMINATION: VITAL SIGNS: Temperature is 99.3, pulse is 92, respiratory rate 18, BP is 104/61, and 94% on room air. GENERAL: This is a cachectic female, in no acute distress. HEENT: Normocephalic, atraumatic. Pupils are equal and reactive to light. She has positive stool smell on her breath. NECK: Erythematous, mildly tender. CV: Regular rate and rhythm. LUNGS: She has crackles in her upper lobes. ABDOMEN: Soft. She has a PEG tube in place. NEUROLOGIC: Nonfocal. PERTINENT LABORATORY DATA AND X-RAYS: Current WBCs 4.3, hemoglobin 10.3, hematocrit 30.2, platelet count is 396,000, she has 46% neutrophils, 39% bands, and 11% monocytes. Sodium 135, potassium 3.4, chloride 101, CO2 is 22, BUN is 14, creatinine 0.54, lactic acid 1.6, calcium 8.5, bilirubin 0.4, AST is 13, ALT is 14, and alk phos is 85. Serum total protein is 5.4, albumin 3.1, and globulin 2.3. Urine is negative. Chest x-ray showed a right lower lobe infiltrate. CT angio per HPI. ASSESSMENT: 1. Stage [place] squamous cell carcinoma of the cervical esophagus. 2. Tracheoesophageal fistula. 3. Possible aspiration pneumonia. DISCUSSION: Patient has been started on antibiotics. She is receiving IV fluids and pain medication. She has nausea medicine p.r.n. She has attempted to begin tube feeds today. We recommend that she remain in this facility until her scheduled tracheostomy on . Recommend Dr. Montesinos be consulted. Hopefully, once she recovers from her trach and is able to take feedings through her PEG tube, she can be discharged home. I believe radiation will be continued. Chemotherapy has been held until next week, just recovers from her current illness. Thank you for the consult. Case has been discussed with Dr. Bello. Job ID: [id number]
[2020-07-25] MEDS: Enoxaparin Sodium 40 MG/0.4 ML SYRINGE SC SCH (20:55)
[2020-07-25] MEDS: Guaifenesin DM 100-10/5 ML UDCUP PER TUBE PRN (22:18)
[2020-07-26] MEDS: Albuterol 200 PUFF (6.7GM INHALER) INH SCH ×5 (00:11→23:47)
[2020-07-26 05:14] LABS: Band 38 % (5-11); Hemoglobin 9.1 g/dL (12.0-16.0); Lymphocytes 10 % (21-51); MDiff Complete? YES; Mean Corpuscular HGB CONC 33.8 g/dL (32.0-36.0); Mean Platelet Volume 8.3 fL (7.4-10.4); Metamyelocyte 3 % (0-0); Monocytes 6 % (0-10); Neutrophil 41 % (42-75); Platelet Count 328 thou/uL (130-400); Platelet Morphology Comment Appears Adequate; RBC Distribution Width 13.5 % (11.5-14.5); Reactive Lymphocytes 2 % (0-10); Red Blood Cell (RBC) Count 2.68 mill/uL (4.20-5.40); White Blood Cell (WBC) Count 7.5 thou/uL (4.8-10.8)
[2020-07-26 05:36] LABS: Vancomycin, Trough 8.1 ug/mL
[2020-07-26 05:43] LABS: Anion Gap 13 mmol/L (10-20); BUN (Urea Nitrogen) 16 mg/dL (9.8-20.1); Calc. Creatinine Clearance 80 mL/min (70-130); Calcium 8.3 mg/dL (7.8-10.44); Carbon Dioxide 23 mmol/L (22-29); Chloride 103 mmol/L (98-107); Estimated GFR-MDRD Greater than 90; Glucose 80 mg/dL (70-105); Magnesium 1.6 mg/dL (1.6-2.6); Potassium 3.2 mmol/L (3.5-5.1); Sodium 136 mmol/L (136-145)
[2020-07-26] MEDS: Vancomycin HCl 500 MG in Sodium Chloride 0.9% 100 ML IVPB SCH (05:49)
[2020-07-26] MEDS ORDERED: Vancomycin HCl 500 MG in Sodium Chloride 0.9% 100 ML IVPB SCH (06:00)
[2020-07-26] MEDS: Clindamycin/D5W 600 MG in Premix Bag 1 BAG IVPB SCH ×3 (06:09→22:57)
[2020-07-26] MEDS: Guaifenesin DM 100-10/5 ML UDCUP PER TUBE PRN ×2 (06:18→21:24)
[2020-07-26] MEDS: HYDROcodone/Acetaminophen 5/325 mg Tablet PO PRN ×3 (08:08→21:23)
[2020-07-26] MEDS ORDERED: Magnesium 2 GM/50 ML 2 GM in Premix Bag 1 BAG IVPB SCH (08:15)
--- NOTE | 2020-07-26 09:03 | PDOC.BPN ---
- Brief Progress Note IDENTIFICATION: 55 year old female with poorly differentiated squamous cell carcinoma of cervical esophagus involving hypopharynx and left lobe of thyroid, T4N0M0, stage MAILE, currently undergoing definitive chemoradiation. She developed malignant tracheoesophageal fistula after 2 weeks of treatment and is currently admitted for aspiration with right lung consolidation. PLAN: I spoke with Dr. Bhakti Cesar, an oncologic cardiothoracic surgeon at [facility] in [place], due to concern for patient's ongoing aspiration with this TEF that will continue to enlarge during chemoradiation. We discussed that in order to prevent future life-threatening aspiration events, she would likely need esophageal diversion in addition to tracheostomy. Therefore, recommend transfer patient to [facility] for higher level of care with advanced surgical procedures. I discussed this with pt, who is agreeable to transfer. As of today, she has completed 36 Gy of planned 66 Gy for radiation. We will consider resuming definitive cancer treatment dependent on her postoperative status and will reevaluate in future. - Appreciate assistance with transfer - Cancer treatment on hold
[2020-07-26] MEDS: Famotidine 20 MG TAB PER TUBE SCH ×2 (09:39→21:24)
[2020-07-26] MEDS: Cefepime 2 GM in Sodium Chloride 0.9% 100 ML IVPB SCH ×2 (09:39→22:57)
[2020-07-26 11:51] LABS: SARS-CoV-2 MS2 Positive; SARS-CoV-2 N Gene Negative; SARS-CoV-2 S Gene Negative; SARS-CoV-2 by NAA Not Detected (NotDetected); SARS-CoV-2 orf1ab Negative
--- NOTE | 2020-07-26 13:02 | PDOC.HOSPP ---
- Subjective Encounter Date: 07/26/20 Encounter Time: 11:10 Subjective: no new complaints mother in room - Objective Vital Signs & Weight: Vital Signs (12 hours) Temp Pulse Resp BP BP Pulse Ox 07/26/20 07:58 93 L 07/26/20 07:47 99.4 F 99 20 118/65 90 L 07/26/20 04:04 116/62 07/26/20 03:44 98.6 F 79 16 92 L Weight Admit Weight 90 lb Weight 90 lb I&O: 07/25/20 07/26/20 07/27/20 06:59 06:59 06:59 Intake Total 900 1175 Balance 900 1175 Result Diagrams: 07/26/20 03:59 07/26/20 03:59 Hospitalist ROS - Medication Medications: Active Medications Generic Name Dose Route Start Last Admin Trade Name Freq PRN Reason Stop Dose Admin Hydrocodone Bitart/Acetaminophen 1 tab 07/25/20 11:39 07/26/20 08:08 Hydrocodone/Acetaminophen 5/325 Mg Tablet PO 1 tab Q6H PRN Administration Pain (1-4) Hydrocodone Bitart/Acetaminophen 2 tab 07/25/20 11:40 07/25/20 11:44 Hydrocodone/Acetaminophen 5/325 Mg Tablet PO 2 tab Q6H PRN Administration Pain (4-6) Albuterol Sulfate 2 puff 07/25/20 19:00 07/26/20 08:05 Albuterol 200 Puff (6.7gm Inhaler) INH Not Given [id number] DAVE Enoxaparin Sodium 40 mg 07/25/20 21:00 07/25/20 20:55 Enoxaparin Sodium 40 Mg/0.4 Ml Syringe SC 40 mg 2100 DAVE Administration Famotidine 20 mg 07/25/20 09:00 07/26/20 09:39 Famotidine 20 Mg Tab PER TUBE 20 mg BID DAVE Administration Guaifenesin/Dextromethorphan 15 ml 07/25/20 04:18 07/26/20 06:18 Guaifenesin Dm 100-10/5 Ml Udcup PER TUBE 15 ml Q4H PRN Administration Cough Sodium Chloride 1,000 mls @ 75 mls/hr 07/25/20 04:15 07/25/20 16:35 Normal Saline 0.9% IV 1,000 mls .[id number] DAVE Administration Cefepime HCl 2 gm/ Sodium 100 mls @ 200 mls/hr 07/26/20 10:00 07/26/20 09:39 Chloride IVPB 100 mls 1000,2200 DAVE Administration Clindamycin Phosphate/Dextrose 50 mls @ 100 mls/hr 07/26/20 06:00 07/26/20 06:09 600 mg/ Device IVPB 50 mls Q8HR DAVE Administration Sodium Chloride 10 ml 07/25/20 09:00 07/26/20 00:02 Flush - Normal Saline 10 Ml Syringe IVF 10 ml Q12HR DAVE Administration - Exam General Appearance: awake alert Eye: anicteric sclera ENT: no oropharyngeal lesions, dry oral mucosa Neck: supple, no JVD Heart: RRR, no murmur Respiratory: no wheezes, rhonchi Gastrointestinal: soft, non-tender, non-distended, normal bowel sounds Extremities: no cyanosis, no edema Neurological: cranial nerve grossly intact, no focal deficits Psychiatric: normal affect, A&O x 3 Hosp A/P (1) Lung abscess Code(s): J85.2 - ABSCESS OF LUNG WITHOUT PNEUMONIA Status: Acute Qualifiers: Pulmonary abscess pneumonia presence: with pneumonia Laterality: right (2) Squamous cell carcinoma of esophagus Code(s): C15.9 - MALIGNANT NEOPLASM OF ESOPHAGUS, UNSPECIFIED Status: Chronic (3) Tracheo-esophageal fistula Code(s): J86.0 - PYOTHORAX WITH FISTULA Status: Chronic (4) Chronic anemia Code(s): D64.9 - ANEMIA, UNSPECIFIED Status: Chronic (5) FTT (failure to thrive) in adult Status: Chronic (6) Moderate protein-calorie malnutrition Code(s): E44.0 - MODERATE PROTEIN-CALORIE MALNUTRITION Status: Chronic - Plan sputum culture grew e.coli, is on clindamycin and cefepime, nebs is going for radiation therapy plan is to transfer her to [facility] for repair of TEF under Dr.Taylor Cesar, has a bed arranged and is awaiting financial clearance. is on carboplatin and taxol weekly from 07/03 and daily radiation therapy tracheo-esophageal fistula is the site of prior bulky cancer per rad onc likely will have recurrent pna and will need closure of fistula continue peg feeding with free water, pain control with norco hemostable, prognosis guarded May tx anytime she is accepted at [facility]
--- NOTE | 2020-07-26 14:27 | PRG ---
DATE OF SERVICE: 07/26/2020 SUBJECTIVE: Rekha Novak is a 55-year-old female. OBJECTIVE: VITAL SIGNS: Temperature is 99, pulse 90 , respirations 20, sats are 90% on room air, blood pressure /65, still coughing a large volume of purulent sputum. CHEST: Bilateral rhonchi, crackles. CARDIAC: Normal S1, S2. No gallops. ABDOMEN: No masses. LABORATORY DATA: White count 7000, H and H of 9 and 26, platelet count 328. Sputum is growing E coli. IMPRESSION: 1. Carcinoma of the esophagus with transesophageal fistula in the cervical esophagus area with aspiration and lung abscess. 2. Marked cachexia. PLAN: Breathing treatment causing her to be nauseated, this is discontinued. Her vancomycin is discontinued. Continue Claforan and clindamycin. She is going to be transferred to [place] for further surgical consultation. Job ID: [id number]
--- NOTE | 2020-07-26 14:31 | PDOC.MOPN ---
Interval History: no complaints. - Vital Signs Vital Signs: Vital Signs (12 hours) Temp Pulse Resp BP BP Pulse Ox 07/26/20 07:58 93 L 07/26/20 07:47 99.4 F 99 20 118/65 90 L 07/26/20 04:04 116/62 07/26/20 03:44 98.6 F 79 16 92 L Weight Admit Weight 90 lb Weight 90 lb - Physical Exam General: Alert Lungs: Clear to auscultation Cardiovascular: Regular rate Abdomen: Normal bowel sounds Neurological: Normal gait, Normal speech, Strength at 5/5 X4 ext, Normal tone, Sensation intact, Cranial nerves 3-12 NL, Reflexes 2+ - Labs Result Diagrams: 07/26/20 03:59 07/26/20 03:59 Lab results: Laboratory Results - last 24 hr 07/26/20 03:59: Vancomycin Trough 8.1 07/26/20 03:59: WBC 7.5, RBC 2.68 L, Hgb 9.1 L, Hct 26.9 L, MCV 100.0 H, MCH 34.0 H, MCHC 33.8, RDW 13.5, Plt Count 328, MPV 8.3, Neutrophils % (Manual) 41 L, Band Neuts % (Manual) 38 H, Lymphocytes % (Manual) 10 L, Reactive Lymphs % 2, Monocytes % (Manual) 6, Metamyelocytes % (Man) 3 H, Plt Morphology Comment Appears Adequate 07/26/20 03:59: Sodium 136, Potassium 3.2 L, Chloride 103, Carbon Dioxide 23, Anion Gap 13, BUN 16, Creatinine 0.50 L, Estimated GFR (MDRD) Greater than 90, Glucose 80, Calcium 8.3, Magnesium 1.6 07/24/20 21:30: SARS-CoV-2 (PCR) Not Detected Status: lab reviewed by me A/P - Problem (1) Lung abscess Current Visit: Yes Code(s): J85.2 - ABSCESS OF LUNG WITHOUT PNEUMONIA Status: Acute Qualifiers: Pulmonary abscess pneumonia presence: with pneumonia Laterality: right (2) Squamous cell carcinoma of esophagus Current Visit: Yes Code(s): C15.9 - MALIGNANT NEOPLASM OF ESOPHAGUS, UNSPECIFIED Status: Chronic (3) Tracheo-esophageal fistula Current Visit: Yes Code(s): J86.0 - PYOTHORAX WITH FISTULA Status: Chronic - Plan Plan: plan transfer to [facility] for tracheoesophageal repair continue TF
[2020-07-26] MEDS: Loperamide HCl 1 MG/7.5 ML UDCUP PER TUBE PRN ×2 (15:29→22:57)
[2020-07-26] MEDS: Sodium Chloride 0.9% 1,000 ML IV SCH (17:32)
[2020-07-26] MEDS: Enoxaparin Sodium 40 MG/0.4 ML SYRINGE SC SCH (21:24)
[2020-07-27] MEDS: HYDROcodone/Acetaminophen 5/325 mg Tablet PO PRN ×2 (03:50→08:23)
[2020-07-27] MEDS: Clindamycin/D5W 600 MG in Premix Bag 1 BAG IVPB SCH (06:00)
[2020-07-27] MEDS: Sodium Chloride 0.9% 1,000 ML IV SCH (06:27)
[2020-07-27] MEDS: Albuterol 200 PUFF (6.7GM INHALER) INH SCH (07:20)
[2020-07-27 08:03] VITALS: BP 113/60; TEMP 98.6
[2020-07-27] MEDS: Famotidine 20 MG TAB PER TUBE SCH (08:24)
--- NOTE | 2020-07-27 15:12 | DIS ---
DATE OF ADMISSION: 07/24/2020 DATE OF DISCHARGE: 07/27/2020 DISCHARGE DISPOSITION: Transfer to higher level of care to [facility]. PRIMARY DISCHARGE DIAGNOSES: Tracheoesophageal fistula with history of squamous cell carcinoma and chemoradiation therapy, lung abscess secondary to above, chronic anemia, failure to thrive, moderate protein calorie malnutrition. PROCEDURES DONE DURING HOSPITALIZATION: CT angio chest showed no evidence of PE, fistulous connection between the distal cervical trachea and the cervical esophagus. Findings compatible with aspiration pneumonia involving right upper lobe. Multiple lung parenchymal nodules in the right lung worrisome for metastasis. Sputum culture grew E coli sensitive to all antibiotics. Blood cultures x2, no growth. Urine culture, no growth. Hemoglobin and hematocrit of 9 and 26, platelet count 328, MCV is 100, white count of 7.5, 38% bands, 41% neutrophils. Albumin is 3.1. COVID-19 PCR was not detected on 07/24/2020. DISCHARGE MEDICATIONS: 1. Clindamycin 600 mg IV q.8 hourly. 2. Cefepime 2 g IV q.12 hourly. 3. DuoNeb q.6 hourly. 4. [place] p.r.n. for pain. 5. Motrin p.r.n. for pain. ALLERGIES: NO KNOWN DRUG ALLERGIES. INPATIENT CONSULT: Dr. Morel for Radiation Oncology; Ms. Maria R Huynh, Nurse Practitioner for Oncology; Dr. Mckeon for Pulmonology. DISCHARGE PLAN: The patient is being discharged to [facility] under the care of Dr. Bhakti Cesar, cardiothoracic oncologic surgeon for tracheoesophageal fistula repair. BRIEF COURSE DURING HOSPITALIZATION: The patient initially got admitted on the with complaints of foul smelling sputum and shortness of breath. She has known history of squamous cell carcinoma of the esophagus and was undergoing chemoradiation therapy. The patient's initial CAT scan was suggestive of tracheoesophageal fistula with right lung abscess/pneumonia. She was placed on broad-spectrum antibiotics. She has had consultations with Dr. Morel for Radiation Oncology and Dr. Mckeon for Pulmonology. In view of high recurrence for pneumonia and lung abscess with underlying tracheoesophageal fistula, the patient was referred to [facility] [place] Thoracic Surgery Unit. Dr. Bhakti Cesar has accepted the patient. She will likely have repair of tracheoesophageal fistula. The patient is accepted for transport. She has been cleared by all specialists for discharge. The patient likely will have a tracheostomy placed as well at the same setting when they repair her tracheoesophageal fistula. Her overall prognosis is guarded. Please note, I have seen and examined the patient on the day of discharge. A total of 35 minutes was spent on discharge plan. Job ID: [id number] MTDD
== END 2020-07-27 08:50 | disposition short-term general hospital (02) | DRG 871 ==
LOC: ERS 16:08 → SJJU 18:56
PROVIDERS: ADMIT Internal Medicine; ATTEND Internal Medicine
DX: A41.9 Sepsis, unspecified organism (principal); J85.1 Abscess of lung with pneumonia; J69.0 Pneumonitis due to inhalation of food and vomit; E44.0 Moderate protein-calorie malnutrition; C15.3 Malignant neoplasm of upper third of esophagus; C79.89 Secondary malignant neoplasm of other specified sites; R64 Cachexia; Z68.1 Body mass index [BMI] 19.9 or less, adult; Z20.828 Contact with and (suspected) exposure to other viral communicable diseases; D64.9 Anemia, unspecified; F17.210 Nicotine dependence, cigarettes, uncomplicated; J44.9 Chronic obstructive pulmonary disease, unspecified; Z88.8 Allergy status to other drugs, medicaments and biological substances; Z93.1 Gastrostomy status; Z79.899 Other long term (current) drug therapy
CPT/HCPCS: 36415; 71045; 71275; 77386; 80048; 80202; 81003; 81015; 83605; 83735; 84484; 85025; 87040; 87070; 87077; 87086; 87186; 87205; 87635; 93005; 96365; 96366; 96367; 96368; 96375; J0692; J1650; J1956; J2270; J2405; J3370; J3475; J3490; Q9967; U0003

== ENCOUNTER 2020-08-10 09:56 | Emergency (ER) | payer OTHER ==
--- NOTE | 2020-08-10 11:17 | RAD ---
EXAM: Single view of the chest HISTORY: Cough with history of pneumonia COMPARISON: 07/24/2020 FINDINGS: Single view of the chest shows a normal sized cardiomediastinal silhouette. The Mediport i s unchanged in position. A tracheostomy is seen with its tip in good position in the trachea. Focal consolidation is seen in the inferior aspect of the right upper lobe, unchanged. There may be a small right pleural effusion. No acute osseous abnormality. IMPRESSION: Stable right upper lobe consolidation
[2020-08-10 11:44] LABS: #Eosinphils 0.1 thou/uL (0.0-0.7); #Lymphocytes 0.7 thou/uL (1.20-3.40); #Monocytes 0.7 thou/uL (0.11-0.59); #Neutrophils 5.2 thou/uL (1.40-6.50); %Basophils 0.7 % (0.0-1.0); %Lymphocytes 9.9 % (21.0-51.0); %Neutrophils 78.5 % (42.0-75.0); Hemoglobin 8.6 g/dL (12.0-16.0); Mean Corpuscular HGB CONC 32.7 g/dL (32.0-36.0); Mean Corpuscular Hemoglobin 33.5 pg (27.0-31.0); Mean Platelet Volume 8.1 fL (7.4-10.4); Platelet Count 553 thou/uL (130-400); RBC Distribution Width 14.4 % (11.5-14.5); Red Blood Cell (RBC) Count 2.56 mill/uL (4.20-5.40); White Blood Cell (WBC) Count 6.6 thou/uL (4.8-10.8)
[2020-08-10 12:06] LABS: ALT (SGPT) 23 U/L (8-55); AST (SGOT) 18 U/L (5-34); Albumin 2.9 g/dL (3.5-5.0); Alkaline Phosphatase 70 U/L (40-110); Anion Gap 16 mmol/L (10-20); BUN (Urea Nitrogen) 17 mg/dL (9.8-20.1); Bilirubin, Total 0.3 mg/dL (0.2-1.2); Calc. Creatinine Clearance 0 mL/min (70-130); Calcium 8.4 mg/dL (7.8-10.44); Carbon Dioxide 21 mmol/L (22-29); Chloride 106 mmol/L (98-107); Estimated GFR-MDRD Greater than 90; Globulin 3.5 g/dL (2.4-3.5); Glucose 97 mg/dL (70-105); Lipase 17 U/L (8-78); Potassium 3.5 mmol/L (3.5-5.1); Protein, Total 6.4 g/dL (6.0-8.3); Sodium 139 mmol/L (136-145)
[2020-08-10 12:07] LABS: Bilirubin Negative (Negative); Blood, Urine Negative (Negative); Clarity Turbid (Clear); Glucose, Urine (Dipstick) Normal (Negative); Ketone, Urine Trace mg/dL (Negative); Leukocyte Negative Leu/uL (Negative); Nitrite Negative (Negative); Protein, Urine (Dipstick) 20 mg/dL (Neg-Trace); Specific Gravity, Urine 1.019 (1.002-1.036); Urobilinogen Normal mg/dL (Less than 2); pH, Urine 6.5 (5.0-9.0)
== END 2020-08-10 15:29 | disposition home or self-care (01) ==
LOC: ERS 09:56
DX: R53.1 Weakness (principal); F17.210 Nicotine dependence, cigarettes, uncomplicated; R11.0 Nausea; R19.7 Diarrhea, unspecified
CPT/HCPCS: 36415; 71045; 80053; 81003; 82274; 83605; 83630; 83690; 84484; 85025; 87045; 87046; 87324; 87328; 87329; 87427; 87449; 93005

== ENCOUNTER 2020-08-27 18:59 | Inpatient (IN) | payer OTHER ==
[~2020-08-27 18:59] MED LIST changes: -Iopamidol 370 76% 100 ML VIAL ONE; +Iopamidol-370 76% 500 ML 1 ML ONE
[2020-08-27] MEDS ORDERED: Vancomycin 1 GM/200 ML BAG ONE (19:25)
[2020-08-27] MEDS ORDERED: Cefepime 2 GM VIAL ONE (19:25)
[2020-08-27] MEDS ORDERED: Tranexamic Acid 1,000 MG/10 ML VIAL ONE (19:29)
[2020-08-27 19:32] LABS: Hemoglobin 10.2 g/dL (12.0-16.0); Mean Corpuscular HGB CONC 33.3 g/dL (32.0-36.0); Mean Corpuscular Hemoglobin 33.6 pg (27.0-31.0); Mean Platelet Volume 9.6 fL (7.4-10.4); Platelet Count 206 thou/uL (130-400); RBC Distribution Width 13.1 % (11.5-14.5); Red Blood Cell (RBC) Count 3.03 mill/uL (4.20-5.40); White Blood Cell (WBC) Count 5.1 thou/uL (4.8-10.8)
[2020-08-27] MEDS ORDERED: Lidocaine 4% Cream 5 GM TUBE w/ Tegaderm ONE (19:41)
--- NOTE | 2020-08-27 19:43 | RAD ---
XR Chest 1 View Portable HISTORY: Shortness of breath, esophageal cancer COMPARISON: 08/10/2020 FINDINGS: The heart size normal. Right-sided Mediport and tracheostomy tube positions are unchanged. There are patchy consolidative changes in the upper lung palafox, left greater than right. No pneumothoraces or pleural effusions are seen. IMPRESSION: Bilateral pneumonia.
[2020-08-27 19:52] LABS: ALT (SGPT) 20 U/L (8-55); AST (SGOT) 27 U/L (5-34); Albumin 2.7 g/dL (3.5-5.0); Alkaline Phosphatase 71 U/L (40-110); Anion Gap 17 mmol/L (10-20); BUN (Urea Nitrogen) 37 mg/dL (9.8-20.1); Band 47 % (5-11); Bilirubin, Total 0.4 mg/dL (0.2-1.2); Calc. Creatinine Clearance 0 mL/min (70-130); Calcium 8.4 mg/dL (7.8-10.44); Carbon Dioxide 24 mmol/L (22-29); Chloride 90 mmol/L (98-107); Estimated GFR-MDRD 39; Globulin 3.3 g/dL (2.4-3.5); Glucose 105 mg/dL (70-105); Hypochromia SLIGHT = 6-15 cells (100X) (0-5/hpf); Lymphocytes 3 % (21-51); MDiff Complete? YES; Macrocytosis SLIGHT = 6-15 cells (100X) (0-5/hpf); Metamyelocyte 4 % (0-0); Monocytes 5 % (0-10); Myelocyte 1 % (0-0); Neutrophil 40 % (42-75); Platelet Morphology Comment Appears Adequate; Polychromasia SLIGHT = 2-3 cells (100X) (0-2/hpf); Potassium 3.2 mmol/L (3.5-5.1); Sodium 128 mmol/L (136-145)
[2020-08-27] MEDS ORDERED: Norepinephrine 4 MG/4 ML VIAL ONE (20:45)
[2020-08-27] MEDS ORDERED: Norepinephrine 8 MG/0.9% NS 250 ML ONE (20:46)
[2020-08-27 21:46] LABS: Analyzer IN Cardio ER; Base Excess (BEa) -3.7 mEq/L (-2.0 to +3.0); CO2 Tension 31.4 mmHg (35.0-45.0); Calcium, Ionized (arterial) 1.09 mmol/L (1.12-1.30); Carboxyhemoglobin (COHb) 0.1 gm% (0.0-3.0); Hemoglobin (Hb) 10.1 g/dL (12.0-16.0); pH, Arterial 7.42 (7.35-7.45)
[2020-08-27 21:51] LABS: O2 Tension (PaO2), arterial 52.2 mmHg (80.0-100.0); Puncture Site RRA
--- NOTE | 2020-08-27 22:24 | CT ---
CT PULMONARY ANGIOGRAM WITH IV CONTRAST AND 3-D POSTPROCESSING: HISTORY:Cough, shortness of breath chemoradiation 2 days ago for esophageal cancer. COMPARISON: 07/24/2020 FINDINGS: There is good contrast opacification of the pulmonary arterial vasculature without filling defects to suggest pulmonary embolism. The thoracic aorta is well opacified without aneurysm or dissection. Prominent mediastinal lymph node s are seen measuring up to 11 mm. No right pleural or pericardial effusions are seen. A small left pleural effusion is present. A trach eostomy tube has been placed in the interim. Consolidative changes in the right upper lobe show interval worsening. Cavitary lesions are seen in t he right upper lobe. There are new areas of consolidation in the left upper lobe and the left lower lobe. There are degenerative changes in the spine. IMPRESSION: No CT evidence of pulmonary embolism. Bilateral pneumonia.
--- NOTE | 2020-08-27 22:35 | CT ---
CT Abdomen Pelvis W Con HISTORY: Esophageal cancer. Chemoradiation 2 days ago. Chills, generalized weakness FINDINGS: Please see chest CTA for chest findings. A PEG tube is present, the tip is in the mid-distal jejunum.. No calcified gallstones are seen. The l iver, spleen, pancreas, adrenal glands and kidneys are unremarkable. No free air, free fluid or lymphadenopathy seen. There are vascular calcifications without evidence of aneurysmal dilatation of the abdominal aorta. The small bowel loops are not abnormally dilated. There is fluid in the rectosigmoid. Some of the small bowel loops demonstrate wall thickening in the left hemiabdomen. There are vascular calcifications without evidence of aneurysmal dilatation of the abdominal aorta. N o osteolytic or osteoblastic lesions are seen. IMPRESSION: Probable enterocolitis. Nonspecific thickening of small bowel loops.
[2020-08-27 22:50] LABS: Bilirubin Negative (Negative); Blood, Urine Trace (Negative); Clarity Turbid (Clear); Glucose, Urine (Dipstick) 70 mg/dL (Negative); Ketone, Urine Negative (Negative); Leukocyte Negative Leu/uL (Negative); Nitrite Negative (Negative); Protein, Urine (Dipstick) 100 mg/dL (Neg-Trace); RBC/HPF 0-3 HPF (0-3); Specific Gravity, Urine 1.021 (1.002-1.036); Squamous Epithelial 0-3 HPF (0-3); Urobilinogen Normal mg/dL (Less than 2)
[2020-08-27 23:02] LABS: Bacteria/HPF 2+ HPF (None Seen); Renal Epithelial 0-3 HPF (None Seen)
[2020-08-27 23:03] LABS: Lactic Acid 2.7 mmol/L (0.5-2.2)
[2020-08-28 00:28] LABS: SARS-CoV-2 NAA Rapid Test Not Detected (NotDetected)
[2020-08-28 01:40] LABS: INR-International Normal Ratio 1.3; PTT 39.3 sec (22.9-36.1)
[2020-08-28] MEDS ORDERED: Acetaminophen 325 MG TAB PER TUBE PRN (01:42)
[2020-08-28] MEDS ORDERED: Acetaminophen 325 MG/10.15 ML UDCUP ONE (01:45)
[2020-08-28] MEDS ORDERED: Tranexamic Acid 1,000 MG/10 ML VIAL FS SCH (02:00)
[2020-08-28] MEDS ORDERED: Ondansetron ODT 4 MG TAB ONE (02:02)
[2020-08-28] MEDS ORDERED: Ondansetron ODT 4 MG TAB SL PRN (02:30)
[2020-08-28] MEDS ORDERED: Ondansetron PF 4 MG/2 ML Vial IVP PRN (02:30)
[2020-08-28] MEDS ORDERED: Sodium Chloride 0.9% 1,000 ML IV SCH (02:45)
--- NOTE | 2020-08-28 03:02 | HP ---
REASON FOR ADMISSION: Shortness of breath. HISTORY OF PRESENT ILLNESS: This is a 55-year-old female patient who is known to have esophageal cancer, undergoing radiation, also known to have a tracheoesophageal fistula. She was transferred to [facility] in [place] where she underwent a tracheostomy placement and has been doing fairly well since then until today she became short of breath and she started suctioning blood from her trachea. She arrived to the emergency room and in the ER, she was found to be hypotensive. She received fluids and needed to be started on Levophed. She was given broad-spectrum antibiotics and neb treatments. Currently, she is still requiring a low-dose Levophed. The patient tells me that for the past 18 hours, she has been taking ibuprofen for her back pain and she took total of 10 pills. She reported diarrhea off and on for the past 6 weeks. She noted some discharge around her wound for the past 3 days. I did review her records and it seems that she was hospitalized approximately a month ago for foul-smelling sputum. She was diagnosed with tracheoesophageal fistula with the right lung abscess/pneumonia. She was placed on broad-spectrum antibiotics and Dr. Morel was consulted. It was decided that since there is a high risk for recurrence of her pneumonia in view of her tracheoesophageal fistula, the patient was referred to [facility] Thoracic Surgery unit. After going there, she did not have a repair of the tracheoesophageal fistula as per the patient. After her discharge, she did fairly well until recently. PAST MEDICAL HISTORY: 1. 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 2. Lung abscess. 3. Chronic anemia. 4. Failure to thrive. SOCIAL HISTORY: She used to be a smoker. She does not drink alcohol. FAMILY HISTORY: Negative for premature coronary artery disease. REVIEW OF SYSTEMS: All systems reviewed; except the above mentioned, found to be negative. PHYSICAL EXAMINATION: GENERAL: She is awake, alert, oriented, does not appear in distress. VITAL SIGNS: Her blood pressure is 90/60, pulse of 110, respiratory rate 24, saturating 94% on face mask. HEENT: Head is nontraumatic, normocephalic. Pupils equal, reactive. Extraocular movements are intact. Nonicteric sclerae. Well-injected conjunctiva. Oral mucosa normal. NECK: Supple. She does have evidence of blood coming out of her trachea whenever she coughs. HEART: S1-S2 regular. No murmur. No gallop. No friction rubs. No displacement of PMI. LUNGS: Clear to auscultation bilaterally. Bowel sounds are positive. She does have a PEG tube. EXTREMITIES: No lower extremity edema. No cyanosis. NEUROLOGIC: Cranial nerves 2-12 within normal limits. Normal motor function. Normal sensory function. Normal reflexes. LABORATORY DATA: Blood work shows WBC of 5.1, hemoglobin of 10.2, platelets of 206, neutrophil count 40%, bands 47%. INR 1.3, PTT 39.3. ABG shows a bicarb of 20, pCO2 of 31.5, PO2 of 52.2. Sodium 128, potassium 3.2, BUN 37, creatinine 1.4. Lactic acid initially 2.9, repeat is 2.7. Urinalysis shows 4 to 6 wbc's, negative nitrites, negative leukocyte esterase. COVID-[address] of the abdomen and pelvis shows probable enterocolitis, nonspecific thickening of the small bowel loop. CT of the chest shows no evidence of PE and shows bilateral pneumonia. ASSESSMENT AND PLAN: This is a 55-year-old female patient who is known to have esophageal cancer, undergoing chemoradiation. She does have tracheoesophageal fistula. She a month ago had a trach placed. She is presenting with shortness of breath and bleeding from her trachea. CAT scan of the chest does reveal possible pneumonia and CT of the abdomen does reveal possible enterocolitis. In the ER, she was hypotensive, responded to IV fluids and currently she is on a low-dose Levophed. Pulmonary: The patient might have pneumonia. She does have cavitary lesions. It is possible that her bleeding is coming from these lesions. For now, we will cover her with broad-spectrum antibiotics. Dr. Belcher was contacted by the ER physician. I will place an official consultation for him. ENT: The patient possibly bleeding from the trach area. Possibly, trach has eroded into the innominate artery. I did contact ENT, Dr. Jacobo, who is covering for Dr. Montesinos, the patient's ENT. He suggested to confer with Radiology and see if the innominate artery is close to the trach or not. I am in the process of re-sending the CT scan to our virtual on-call radiologist to ask this question since our radiologist is not on-call anymore. On the other hand, we will try to nebulize into her trach and hopefully that will counteract the bleed. It is possible that she bled due to the fact that she took 10 tablets of ibuprofen over the past 18 hours which favors bleeding. Renal system and electrolytes: The patient is hyponatremic and she has worsening of her creatinine. We will maintain her IV fluids. GI: Patient possibly has enterocolitis. The antibiotics we are using should cover that possibility. The patient remains borderline hypotensive. We will recheck her H and H. We will type and screen her in case she needs to be transfused and also will have her on IV fluids. We will continue with Levophed, taper it off when possible. I did discuss the code status with her. She wishes to be a full code. One hour of critical care time was spent to manage this patient. Job ID: [id number]
[2020-08-28 03:35] VITALS: BMI 18.1
[2020-08-28] MEDS ORDERED: Norepinephrine 8 MG/0.9% NS 250 ML ONE (03:48)
[2020-08-28 03:51] LABS: Anion Gap 20 mmol/L (10-20); BUN (Urea Nitrogen) 38 mg/dL (9.8-20.1); Calc. Creatinine Clearance 28 mL/min (70-130); Calcium 7.5 mg/dL (7.8-10.44); Carbon Dioxide 17 mmol/L (22-29); Chloride 98 mmol/L (98-107); Estimated GFR-MDRD 36; Glucose 230 mg/dL (70-105); Potassium 3.8 mmol/L (3.5-5.1); Sodium 131 mmol/L (136-145)
[2020-08-28] MEDS ORDERED: Ventilator Sedation Protocol 1 EACH FS SCH (04:00)
[2020-08-28 04:03] LABS: White Blood Cell (WBC) Count 0.6 thou/uL (4.8-10.8)
--- NOTE | 2020-08-28 04:10 | PDOC.EVN ---
Event Note - Event Note Event Note: code janina was called she was found with in agonal breathing patient arrived to the imc and was even able to move from stretcher to bed on her own. patient trach was inflated and and some blood extravasated but then no more blood was obtained by suctioned. her BP was undetectable, we bolused her with fluids and restarted her Levophed, she immediately became more responsive. A/P: resp arrest and hypotension restarted on fluids and pressors. will transfer to ICU and start vent protocol. will follow up on her labs previous issue with tracheal bleed seems to have been resolved, CT of chest did not reveal any major vascular compromise.
[2020-08-28 04:11] VITALS: BP 99/67
[2020-08-28] MEDS ORDERED: DISCONTINUE PREVIOUS NARCOTIC PAIN MEDICATIONS AND BENZODIAZEPINES FS SCH (04:15)
[2020-08-28] MEDS ORDERED: fentaNYL Citrate/PF 2,000 MCG in Sodium Chloride 0.9% 60 ML IV SCH (04:15)
[2020-08-28] MEDS ORDERED: Fentanyl BOLUS 250 ML IVPB PRN (04:15)
[2020-08-28] MEDS ORDERED: Propofol BOLUS 1,000 MG/100 ML VIAL IV PRN (04:15)
[2020-08-28] MEDS ORDERED: Morphine 2 MG/ML VIAL SLOW IVP PRN (04:15)
[2020-08-28] MEDS ORDERED: Lorazepam 2 MG/ML VIAL SLOW IVP PRN (04:15)
[2020-08-28] MEDS ORDERED: Propofol 1,000 MG/100 ML VIAL IV PRN (04:15)
[2020-08-28 04:45] LABS: Actual Bicarbonate (HCO3a) 12.3 mEq/L (22-28); Base Excess (BEa) -20.4 mEq/L (-2.0 to +3.0); Calcium, Ionized (arterial) 1.08 mmol/L (1.12-1.30); Carboxyhemoglobin (COHb) 0.3 gm% (0.0-3.0); Hemoglobin (Hb) 9.9 g/dL (12.0-16.0); Potassium - ABG Lab 4.73 mmol/L (3.70-5.30)
[2020-08-28 04:49] LABS: O2 Tension (PaO2), arterial 59.9 mmHg (80.0-100.0); pH, Arterial 6.89 (7.35-7.45)
[2020-08-28 04:50] LABS: Puncture Site RB
[2020-08-28] MEDS: Sodium Bicarb 50 MEQ/50 ML Abboject 8.4% SYRINGE ONE (05:11)
[2020-08-28] MEDS ORDERED: Sodium Bicarb 50 MEQ/50 ML Abboject 8.4% SYRINGE IVP SCH (05:15)
[2020-08-28] MEDS ORDERED: Vasopressin 20 UNIT, Admixture Fee 1 EACH in Sodium Chloride 0.9% 50 ML IV SCH (05:30)
[2020-08-28 05:36] LABS: Anisocytosis SLIGHT = 6-15 cells (100X) (0-5/hpf); Band 8 % (5-11); Eosinophils 2 % (0-10); Hemoglobin 10.2 g/dL (12.0-16.0); Large Platelets SLIGHT; Lymphocytes 24 % (21-51); MDiff Complete? YES; Mean Corpuscular HGB CONC 31.6 g/dL (32.0-36.0); Mean Corpuscular Hemoglobin 33.4 pg (27.0-31.0); Mean Platelet Volume 10.2 fL (7.4-10.4); Metamyelocyte 10 % (0-0); Monocytes 12 % (0-10); Myelocyte 12 % (0-0); Neutrophil 32 % (42-75); Nucleated RBC 2 % (0); Platelet Count 165 thou/uL (130-400); Platelet Morphology Comment Appears Adequate; RBC Distribution Width 13.2 % (11.5-14.5); Red Blood Cell (RBC) Count 3.07 mill/uL (4.20-5.40)
[2020-08-28] MEDS ORDERED: Sodium Bicarbonate 150 MEQ in Dextrose 5% in Water 1,000 ML IV SCH (05:45)
[2020-08-28] MEDS ORDERED: Atropine Sulfate 1 mg/10 ml Syringe ONE (06:35)
[2020-08-28] MEDS ORDERED: Vancomycin 1.5 GRAM/300 ML BAG 1 GM in Premix Bag 1 BAG IVPB SCH (07:00)
[2020-08-28] MEDS ORDERED: EPINEPHrine 1 MG/ML AMP ONE (07:08)
[2020-08-28] MEDS ORDERED: EPINEPHrine 1 MG/10 ML Abboject SYRINGE ONE (07:09)
--- NOTE | 2020-08-28 07:21 | PRG ---
DATE OF SERVICE: 08/28/2020 Ms. Novak just developed pulseless electrical activity and then became asystolic. She was pronounced at 0709 hours. Attempts again were made to contact her mother and no one is answering the phone. Critical care time 85 min. Job ID: [id number] MTDD
[2020-08-28 07:35] VITALS: TEMP 93.6
--- NOTE | 2020-08-28 08:07 | CON ---
DATE OF CONSULTATION: 08/28/2020 HISTORY OF PRESENT ILLNESS: Ms. Novak is a 55-year-old female. She has a recent history of tracheoesophageal fistula that led to a transfer presumably to [facility] in [place]. She presented with coughing up blood last night through tracheostomy orifice. She was admitted to the critical care unit. She coded after arrival in the critical care unit and has been resuscitated. Her pH is 6.88. Shortly after I arrived, she coded again that responded to 1 mg of epinephrine and atropine. PAST MEDICAL HISTORY: Remarkable for: 1. Esophageal cancer with recent TE fistula and lung abscess. 2. History of protein-calorie malnutrition and cachexia with this illness. FAMILY HISTORY: Unknown. SOCIAL HISTORY: Noncontributory. REVIEW OF SYSTEMS: Not obtainable. PHYSICAL EXAMINATION: GENERAL: She is extremely pale, extremely cachectic. HEENT: She has temporal muscle wasting. Pupils do not react. She is intubated. NECK: Without lymphadenopathy. VITAL SIGNS: Heart rate currently is 108, blood pressure is 126/113, respiratory rate is in the 30s. LUNGS: Remarkable for coarse equal breath sounds. HEART: Regular rhythm. ABDOMEN: Soft. EXTREMITIES: Cool. DIAGNOSTIC STUDIES: CT of her chest shows right upper lobe infiltrate with cavitation of left upper lobe and left lower lobe infiltrates. There is no stent visible on her CT scan abdomen and pelvis does not show free air. IMPRESSION: Clinical sepsis with a metabolic acidosis, it is not survivable. Her pH is 6.89. Her white count is 600, hemoglobin is 10.2, platelets 165, she has 10% metamyelocytes, 12% myelocytes on her peripheral smear, which I suspect is a leukemoid reaction. There is no point in coding her again. We tried to contact the mother multiple times with no answer. She was contacted after first code and said she would come up later in the morning. Since this is 100% futile and a terminal event, I see no point in continuing with codes. She arrests again. She will be pronounced. CRITICAL CARE TIME: 1 hour and 25 minutes. Job ID: [id number] MTDD
[2020-08-28] MEDS ORDERED: Cefepime 2 GM in Sodium Chloride 0.9% 100 ML IVPB SCH (18:00)
[2020-08-28] MEDS ORDERED: Vancomycin HCl 750 MG in Sodium Chloride 0.9% 250 ML 250 ML IVPB SCH (20:00)
[2020-08-30] MEDS ORDERED: Prevnar 13-Val Conj/PF 0.5 ML SYRINGE IM ONE (09:00)
[2020-08-30] MEDS ORDERED: FLU VACC QS2020-21(6MOS UP)/PF 60 MCG/0.5 ML SYRINGE IM ONE (09:00)
--- NOTE | 2020-08-30 23:19 | PQF ---
CLINICAL DOCUMENTATION CLARIFICATION FORM: Dear : Sky Belcher MD Date / Time: 08/30/2020 Please exercise your independent, professional judgment in responding to the clarification form. Clinical indicators are provided on the bottom of this form for your review Please check appropriate box(es): [ ] Protein Calorie Malnutrition: [ ] Mild [ ] Moderate [ ] Severe [ ] Other Malnutrition (please specify) [ ] Underweight without malnutrition [ ] Cachexia [ ] Other diagnosis (Please specify if any) [ ] Unable to determine In addition, please specify: Present on Admission (POA): [ ] Yes [ ] No [ ] Unable to determine Physician Signature: Date/Time: For continuity of documentation, please document condition throughout progress notes and discharge summary. Thank You. To be completed by CDI/Coding staff for physician review: Present Clinical Indicators - Signs / Symptoms / Labs Results and Location in Medical Record [x] Malnutrition, Failure to Thrive, Cachexia Consult on 08/28 [x] BMI of 18.1 Physician care asst Two or More of the Following ASPEN Criteria: [x] History of protein-calorie malnutrition Consult on 08/28 [x] Albumin 2.7 Laboratory on 08/27 [x] Calcium 7.5 Laboratory on 08/28 [x] She has temporal muscle wasting Consult on 08/28 [ ] Localized/Generalized Fluid Accumulation [ ] Diminished Handgrip Strength Present Risk Factors Results and Location in Medical Record [ ] Change in appetite / nausea / vomiting / diarrhea [ ] Inability to consume adequate caloric intake [x] Esophageal cancer ED provider report on 08/27 [ ] Medication [ ] PEG tube [ ] Short gut syndrome Present Treatments Results and Location in Medical Record [ ] Dietary consult [ ] Nutritional supplements [x] PEG tuble ED provider report on 08/27 [ ] Assistance with feeding [ ] Appetite stimulant - medication CDS/Keg Raiser Signature: AAS Phone #: Date/Time: 08/30/2020 Moderate Malnutrition (in acute illness) ? Energy Intake: <75% of estimated energy requirement for > 7 days ? Weight Loss: 1-2%/1 week; 5%/ 1 month; 7.5%/3 months ? Other: mild body fat loss; mild muscle mass loss; mild fluid accumulation; Severe Malnutrition (in acute illness) ? Energy Intake: ? 50% of estimated energy requirement for ? 5 days ? Weight Loss: >2%/1 week; >5%/1 month; >7.5%/3 months ? Other: moderate body fat loss; moderate muscle mass loss; moderate- severe fluid accumulation; measurably reduced hose seamer strength Moderate Malnutrition (in chronic illness) ? Energy Intake: <75% of estimated energy requirement for ?1 month ? Weight Loss: 5%/1 month; 7.5%/3 months; 10%/6 months; 20%/1 year ? Other: mild body fat loss; mild muscle mass loss; mild fluid accumulation Severe Malnutrition (in chronic illness) ? Energy Intake: ?75% of estimated energy requirement for ?1 month ? Weight Loss: >5%/1 month; >7.5%/3 months; >10%/6 months; >20%/1 year ? Other: severe body fat loss; severe muscle mass loss; severe fluid accumulation; measurably reduced hose seamer strength This is a permanent part of the Medical Record severe protein calorie malnutrition present on admission [facility]
--- NOTE | 2020-09-09 17:02 | EKG ---
Test Reason : ER Blood Pressure : / mmHG Vent. Rate : 106 BPM Atrial Rate : 106 BPM P-R Int : 126 ms QRS Dur : 076 ms QT Int : 352 ms P-R-T Axes : 070 075 073 degrees QTc Int : 467 ms Sinus tachycardia with Premature supraventricular complexes Otherwise normal ECG Confirmed by KENDRA ROMEO DO ([id number]), pictures editor LARRY DAI ([id number]) on 09/09/2020 5:02:19 PM Referred By: Confirmed By:KENDRA ROMEO DO
== END 2020-08-28 07:09 | disposition expired | DRG 871 ==
LOC: ERS 18:59 → ERHOLD 22:31 → IMCU/EMU 08-28 03:05 → CCU 08-28 04:02
PROVIDERS: ADMIT Internal Medicine; ATTEND Internal Medicine
PROC: 0B918ZZ Drainage of Trachea, Via Natural or Artificial Opening Endoscopic (ICD-10-PCS; principal; 2020-08-28)
PROC: 5A1935Z Respiratory Ventilation, Less than 24 Consecutive Hours (ICD-10-PCS; 2020-08-28)
DX: A41.9 Sepsis, unspecified organism (principal); J18.9 Pneumonia, unspecified organism; E43 Unspecified severe protein-calorie malnutrition; E87.1 Hypo-osmolality and hyponatremia; J95.03 Malfunction of tracheostomy stoma; R64 Cachexia; Z68.1 Body mass index [BMI] 19.9 or less, adult; C15.9 Malignant neoplasm of esophagus, unspecified; E87.2 Acidosis; F17.210 Nicotine dependence, cigarettes, uncomplicated; Y83.9 Surgical procedure, unspecified as the cause of abnormal reaction of the patient, or of later complication, without mention of misadventure at the time of the procedure; Z92.21 Personal history of antineoplastic chemotherapy; Z92.3 Personal history of irradiation; R09.2 Respiratory arrest; I46.9 Cardiac arrest, cause unspecified; Z79.1 Long term (current) use of non-steroidal anti-inflammatories (NSAID); K52.9 Noninfective gastroenteritis and colitis, unspecified; Z93.1 Gastrostomy status
CPT/HCPCS: 36415; 71045; 71275; 74177; 80048; 80053; 81003; 81015; 82805; 83605; 84484; 85025; 85610; 85730; 86850; 86900; 86901; 87040; 87077; 87086; 87186; 93005; 94002; 96365; 96366; 96367; 99292; J0692; J3370; J7070; Q0162; Q9967; U0002